=== PATIENT | male | born 1940 | race Caucasian/White ===

== ENCOUNTER 2017-03-14 11:34 | Day surgery (SDC) | payer MEDICARE, BC ==
--- NOTE | ~2017-03-14 | EGD ---
EGD REPORT [facility] [address] [id number] NAME: MARIANO BURNS : [birth year] STATUS : [facility]#: [id number] AGE: 76 ADM/REG DATE : 03/14/17 MR#: [id number] REPORT SERV DATE: 03/14/17 DICTATED BY: FIDEL HAWK DATE: 03/14/17 REPORT STATUS : Draft TRANSCRIBED BY: [facility] DATE: 03/14/17 Pulmonology Patient Name: Mariano Burns Procedure Date: 03/14/2017 2:16 PM Date of : 1940 Attending MD: GISSEL HAWK MD Procedure Date No Time: 03/14/2017 Procedure: EBUS/NAVIGATION BRONCHOSCOPY Indications: LLL nodular infiltrate or airspace opacity and RUL infiltrate, LLL lung nodules Providers: GISSEL HAWK MD Referring MD: DAYANA HERRERA MD Medicines: Lidocaine 2% 20 mL Complications: No immediate complications Procedure: Pre-Anesthesia Assessment: - A History and Physical has been performed. Patient meds and allergies have been reviewed. The risks and benefits of the procedure and the sedation options and risks were discussed with the patient. All questions were answered and informed consent was obtained. Patient identification and proposed procedure were verified prior to the procedure by the physician and the nurse in the pre-procedure area in the procedure room. Mental Status Examination: alert and oriented. Airway Examination: normal oropharyngeal airway. Respiratory Examination: poor air movement. CV Examination: normal and RRR, no murmurs, no S3 or S4. ASA Grade Assessment: IV - A patient with severe systemic disease that is a constant threat to life. After reviewing the risks and benefits, the patient was deemed in satisfactory condition to undergo the procedure. The anesthesia plan was to use general anesthesia. Immediately prior to administration of medications, the patient was re-assessed for adequacy to receive sedatives. The heart rate, respiratory rate, oxygen saturations, blood pressure, adequacy of pulmonary ventilation, and response to care were monitored throughout the procedure. The physical status of the patient was re-assessed after the procedure. After obtaining informed consent,The procedure was accomplished without difficulty. The patient tolerated the procedure well. Findings: The endotracheal tube is in good position. The visualized portion of the trachea is of normal caliber. The mary is sharp. The tracheobronchial tree was examined to at least the first subsegmental level. Bronchial EGD REPORT [address] [place]. [address] NAME: MARIANO BURNS : [birth year] STATUS : [facility] PAT#: [id number] AGE: 76 ADM/REG DATE : 03/14/17 MR#: [id number] REPORT SERV DATE: 03/14/17 DICTATED BY: FIDEL HAWK DATE: 03/14/17 REPORT STATUS : Draft TRANSCRIBED BY: [employer] DATE: 03/14/17 mucosa and anatomy are normal; there are no endobronchial lesions, and no secretions. EBUS TBNA of lymph node level 11R x 4 passes for cytology EBUS TBNA of lymph node level 4R x 6 passes for cytology EBUS TBNA of lymph node level 7 x 6 passes for cytology EBUS TBNA of lymph node level 4L x 6 passes for cytology EBUS TBNA of lymph node level 11L x 6 passes for cytology Using SuperDimension Edge catheter medial, peripheral probe EBUS 17s, and fluoroscopy, I performed the following biopsies: LLL medial infiltrate/airspace opacity transbronchial needle aspirates x 4 passes for cytology LLL medial infiltrate/airspace opacity transbronchial brush biopsies x 2 passes for cytology LLL medial infiltrate/airspace opacity transbronchial forcep biopsies x 2 passes for histopathology BUCKY endobronchial brush biopsies were performed for the Percepta Impression: Rapid On-Site Evaluation (EDOUARD): Preliminary cytology is suggestive of "POSSIBLE GRANULOMATOUS DISEASE" (final results are pending). Recommendation: - Await test results. - Chest X-ray. - Follow up with referring physician. - Await Percepta results Attending Participation: I personally performed the entire procedure. GISSEL HAWK MD 03/14/2017 4:38 PM This report has been signed electronically. Number of Addenda: 0 Note Initiated On: 03/14/2017 2:16 PM [id number] [id number]
--- NOTE | ~2017-03-14 | EGD ---
EGD REPORT [facility] [address] [id number] NAME: MARIANO BURNS : [birth year] STATUS : [facility]#: [id number] AGE: 76 ADM/REG DATE : 03/14/17 MR#: [id number] REPORT SERV DATE: 03/17/17 DICTATED BY: FIDEL HAWK DATE: 03/17/17 REPORT STATUS : Draft [facility]ANSCRIBED BY: [facility] DATE: 03/17/17 Pulmonology Patient Name: Mariano Burns Procedure Date: 03/14/2017 2:16 PM Date of : 1940 Attending MD: GISSEL HAWK MD Procedure Date No Time: 03/14/2017 Procedure: EBUS/NAVIGATION BRONCHOSCOPY Indications: LLL nodular infiltrate or airspace opacity and RUL infiltrate, LLL lung nodules Providers: GISSEL HAWK MD Referring MD: DAYANA HERRERA MD Medicines: Lidocaine 2% 20 mL Complications: No immediate complications Procedure: Pre-Anesthesia Assessment: - A History and Physical has been performed. Patient meds and allergies have been reviewed. The risks and benefits of the procedure and the sedation options and risks were discussed with the patient. All questions were answered and informed consent was obtained. Patient identification and proposed procedure were verified prior to the procedure by the physician and the nurse in the pre-procedure area in the procedure room. Mental Status Examination: alert and oriented. Airway Examination: normal oropharyngeal airway. Respiratory Examination: poor air movement. CV Examination: normal and RRR, no murmurs, no S3 or S4. ASA Grade Assessment: IV - A patient with severe systemic disease that is a constant threat to life. After reviewing the risks and benefits, the patient was deemed in satisfactory condition to undergo the procedure. The anesthesia plan was to use general anesthesia. Immediately prior to administration of medications, the patient was re-assessed for adequacy to receive sedatives. The heart rate, respiratory rate, oxygen saturations, blood pressure, adequacy of pulmonary ventilation, and response to care were monitored throughout the procedure. The physical status of the patient was re-assessed after the procedure. After obtaining informed consent,The procedure was accomplished without difficulty. The patient tolerated the procedure well. Findings: The endotracheal tube is in good position. The visualized portion of the trachea is of normal caliber. The mary is sharp. The tracheobronchial tree was examined to at least the first subsegmental level. Bronchial EGD REPORT [address] [place]. [address] NAME: MARIANO BURNS : [birth year] STATUS : [facility] PAT#: [id number] AGE: 76 ADM/REG DATE : 03/14/17 MR#: [id number] REPORT SERV DATE: 03/17/17 DICTATED BY: FIDEL HAWK DATE: 03/17/17 REPORT STATUS : Draft TRANSCRIBED BY: [employer] DATE: 03/17/17 mucosa and anatomy are normal; there are no endobronchial lesions, and no secretions. EBUS TBNA of lymph node level 11R x 4 passes for cytology EBUS TBNA of lymph node level 4R x 6 passes for cytology EBUS TBNA of lymph node level 7 x 6 passes for cytology EBUS TBNA of lymph node level 4L x 6 passes for cytology EBUS TBNA of lymph node level 11L x 6 passes for cytology Using SuperDimension Edge catheter medial, peripheral probe EBUS 17s, and fluoroscopy, I performed the following biopsies: LLL medial infiltrate/airspace opacity transbronchial needle aspirates x 4 passes for cytology LLL medial infiltrate/airspace opacity transbronchial brush biopsies x 2 passes for cytology LLL medial infiltrate/airspace opacity transbronchial forcep biopsies x 2 passes for histopathology BUCKY endobronchial brush biopsies were performed for the Percepta Impression: Rapid On-Site Evaluation (EDOUARD): Preliminary cytology is suggestive of "POSSIBLE GRANULOMATOUS DISEASE" (final results are pending). Recommendation: - Await test results. - Chest X-ray. - Follow up with referring physician. - Await Percepta results Attending Participation: I personally performed the entire procedure. GISSEL HAWK MD 03/14/2017 4:38 PM This report has been signed electronically. Number of Addenda: 1 Note Initiated On: 03/14/2017 2:16 PM Addendum Number: 1 Addendum Date: 03/17/2017 7:28 PM LLL was wedged and 180 ccs of normal saline was instilled with 20 ccs of cellular return and sent for cytology. GISSEL HAWK MD 03/17/2017 7:29 PM This report has been signed electronically. EGD REPORT [facility] [address] [id number] NAME: AMRIANO BURNS : [birth year] STATUS : [facility] PAT#: [id number] AGE: 76 ADM/REG DATE : 03/14/17 MR#: [id number] REPORT SERV DATE: 03/17/17 DICTATED BY: FIDEL HAWK DATE: 03/17/17 REPORT STATUS : Draft [facility]IBED BY: [facility] DATE: 03/17/17 [address] [id number]
[~2017-03-14 11:34] MED LIST: ADVAIR230P INH; ASAB PO; CALTRA600D PO; COREG6 PO; CYANO1000T PO; EFFEXXR37 PO; FISH OIL300 MG PO; FLOMAX4 PO; INDO50 PO; LEVOXYL125 MCG PO; PREVALITE4 G1 PO; PRILOSEC40 MG PO; PRIN5 PO; PROBIOTIC PO; SEROQUEL XR50 MG PO; SYMBICORT 160/41 INH INH; VENTOLIN HFA INH
[2017-03-14 12:16] LABS: BASOPHILS 0.4 %; BASOPHILS ABSOLUTE 0.02 10/3/uL (0.0-0.16); EOSINOPHILS 3.6 %; EOSINOPHILS ABSOLUTE 0.19 10/3/uL (0.0-0.53); HEMATOCRIT 41.4 % (40.0-51.0); HEMOGLOBIN 13.7 g/dL (13.6-17.8); IMMATURE GRANULOCYTES 0.2 %; IMMATURE GRANULOCYTES ABSOLUTE 0.01 10/3/uL (0.0-0.11); LYMPHOCYTES 28.5 %; LYMPHOCYTES ABSOLUTE 1.52 10/3/uL (0.67-4.30); MANUAL DIFF NO %; MEAN CORPUS HGB CONC 33.1 g/dL (32.0-36.0); MEAN CORPUSCULAR VOLUME 96.7 fL (80-100); MEAN PLATELET VOLUME 8.7 fL (9.2-13.0); MONOCYTES 9.9 %; MONOCYTES ABSOLUTE 0.53 10/3/uL (0.21-1.20); NEUTROPHILS 57.4 %; NEUTROPHILS ABSOLUTE 3.07 10/3/uL (2.02-8.40); PLATELET COUNT 155 10/3/uL (150-400); RBC DISTRIBUTION WIDTH 13.9 % (12.0-16.0); RED CELL COUNT 4.28 10/6/uL (4.7-6.1); WHITE BLOOD CELLS 5.3 10/3/uL (4.5-10.5)
[2017-03-14 12:23] LABS: INTERNATIONAL NORMAL RATI 1.1 UNITS (-); PARTIAL THROMBO TIME 30.7 SEC (22.5-37.2); PROTIME (NOT ORD) 13.6 SEC (12.0-14.5)
[2017-03-14 12:27] LABS: BUN (BLOOD UREA NITROGEN) 12 MG/DL (6-23); CHLORIDE, SERUM 104 MMOL/L (96-112); CO2 (CARBON DIOXIDE) 31 MMOL/L (24-34); CREATININE 0.64 MG/DL (0.70-1.30); GFR AFRICAN AMERICAN 112 ML/MIN (>=60); GFR NON AFRICAN AMERICAN 96 ML/MIN (>=60); POTASSIUM, SERUM 4.7 MMOL/L (3.5-5.3); SODIUM, SERUM 141 MMOL/L (135-148)
[2017-03-14 12:29] LABS: GLUCOSE, SERUM 102 MG/DL (60-99)
[2017-03-14 19:02] LABS: BD FL LYMPH (NOT ORD) 12 %; BD FL SOURCE (NOT ORD) BAL--LLL; BF BASO (NOT OF) 0 %; BF LARGE MONONUCLEAR 84 %; BF TOTAL CELL CT (NOT ORD 256 /MM3; BODY FLUID EOS (NOT ORD) 0 %; BODY FLUID RBC (NOT ORD) 3000 /MM3; BODY FLUID SEG (NOT ORD) 4 %
== END 2017-03-14 18:54 | disposition home or self-care (01) ==
LOC: DMU 11:34
PROVIDERS: Anesthesiology; Internal Medicine
PROC: 07B74ZX Excision of Thorax Lymphatic, Percutaneous Endoscopic Approach, Diagnostic (ICD-10-PCS; principal; 2017-03-14 12:30)
PROC: 0BBJ8ZX Excision of Left Lower Lung Lobe, Via Natural or Artificial Opening Endoscopic, Diagnostic (ICD-10-PCS; 2017-03-14 12:30)
PROC: 0BB38ZX Excision of Right Main Bronchus, Via Natural or Artificial Opening Endoscopic, Diagnostic (ICD-10-PCS; 2017-03-14 12:30)
DX: D14.32 Benign neoplasm of left bronchus and lung (principal); I25.10 Atherosclerotic heart disease of native coronary artery without angina pectoris; I73.9 Peripheral vascular disease, unspecified; E03.9 Hypothyroidism, unspecified; E78.00 Pure hypercholesterolemia, unspecified; J44.9 Chronic obstructive pulmonary disease, unspecified; F32.9 Major depressive disorder, single episode, unspecified; F17.210 Nicotine dependence, cigarettes, uncomplicated; K21.9 Gastro-esophageal reflux disease without esophagitis; N40.0 Benign prostatic hyperplasia without lower urinary tract symptoms; G47.33 Obstructive sleep apnea (adult) (pediatric); H91.90 Unspecified hearing loss, unspecified ear; M10.9 Gout, unspecified; Z95.1 Presence of aortocoronary bypass graft; Z88.6 Allergy status to analgesic agent; Z95.820 Peripheral vascular angioplasty status with implants and grafts; Z87.442 Personal history of urinary calculi; Z85.850 Personal history of malignant neoplasm of thyroid; Z90.89 Acquired absence of other organs; Z79.82 Long term (current) use of aspirin; Z79.899 Other long term (current) drug therapy; Z98.890 Other specified postprocedural states
CPT/HCPCS: 71010; 80048; 85025; 85610; 85730; 87015; 87070; 87102; 87116; 87205; 88112; 88172; 88173; 88177; 88305; 88312; 88333; 89051; 93005; A9270-GY; C1725; J2370; J2405; J2710; J3010

== ENCOUNTER 2017-03-24 13:18 | Emergency (ER) | payer MEDICARE, BC | END 2017-03-24 15:43 | disposition home or self-care (01) | LOC: ER 13:18 | DX: S22.41XA Multiple fractures of ribs, right side, initial encounter for closed fracture (principal); I10 Essential (primary) hypertension; Z95.1 Presence of aortocoronary bypass graft; Z85.850 Personal history of malignant neoplasm of thyroid; Z88.8 Allergy status to other drugs, medicaments and biological substances; Z79.82 Long term (current) use of aspirin; Z79.899 Other long term (current) drug therapy; W18.2XXA Fall in (into) shower or empty bathtub, initial encounter | CPT/HCPCS: 71100-RT; 72131; 99284; A9270-GY ==